=== PATIENT | male | born 2000 | race Caucasian/White ===

== ENCOUNTER 2021-08-12 09:25 | Emergency (ER) | payer OTHER, SELFPAY ==
--- NOTE | 2021-08-12 09:15 | RT.EKG_ITS ---
APPROVED REPORT Exam: Resting ECG Reason for Exam: PALPITATIONS Patient Location: E HR:81 bpm ECG Measurements Heart Rate 81 AXIS WY 109 P 75 QRSd 100 QRS 78 QT 377 T 64 QTc 439 Conclusion Sinus rhythm...normal P axis, V-rate 60- 99
--- NOTE | 2021-08-12 09:35 | W.ED.GENAD ---
Discharge Plan Disposition Patient Disposition: HOME Condition: Stable Discharge Details Clinical Impression: Palpitations Primary Care Provider: Roxanne,Local ED Provider: Gregorio Chilel Home Meds and New Rx's Prescriptions: No Action No Known Home Meds RF: 0 Discharge Instructions Instructions: Heart Palpitations (ED) Additional Instructions: follow up with the oyster culturist in [place] if you feel more ill, have chest pain/pressure, or worsening shortness of breath return to the emergency department Medical Decision Making 20 yo male with no chronic medical problems and denies smoking, drinking or alcohol use comes in with chief complaint of intermittent sensation of his heart fluttering and lasts a few minutes though today seems to be more persistent. He is in this area for school and lives in [place] and is supposed to be seeing cardiology down there in a few weeks. He denies any pain in the chest and denies pressure. He has no diaphoresis, n/v. He states sometimes he feels short of breath with the symptoms. He denies fevers, cough, leg swelling. He states family members have a history of svt. He is hemodynamically stable with normal ecg on exam while having the symptoms. He has clear lungs, no murmurs, no jvd, no leg swelling or calf tenderness. On bedside u/s no pericardial effusion, normal ef of the left ventricle, normal sized rv, normal lung sliding bilaterally and no b lines or effusions. I suspect this could be anxiety but given his symptoms feel it is reasonable to have an outpatient quality assurance monitor chassis placed. He is wells low and perc negative so doubt PE. No chest pain or pressure, heart score 0 so do not feel troponin indicated. Will have RT place outpatient monitor, return precautions given Differential Diagnosis Differential Diagnosis: afib, aflutter, svt, anxious ECG Data Attestation: I personally reviewed and interpreted this ECG (s) as follows: Prior ECG tracings: not available for review Interpretation: sinus rhythm, rate of 80, no acute st t wave ischemic findings HPI General Mode of arrival: ambulatory. Date/Time Provider Initiated Documentation: 08/12/21 09:26. Limitations to Documentation: no limitations. Information obtained by: patient. History of Present Illness 20 year old M presents to the emergency department with the chief complaint of fluttering in chest, described as mild, Patient started experiencing this week(s) (3) and it has been intermittent. No relieving factors improve symptom(s), No exacerbating factors reported . Patient notes shortness of breath. Patient did receive the following treatments prior to arrival, none Related Data Home Medications Medication Instructions Recorded Confirmed Unknown [No Known Home Meds] 08/12/21 08/12/21 Allergies Allergy/AdvReac Type Severity Reaction Status Date / Time No Known Allergies Allergy Unverified 08/12/21 09:30 General Stated Complaint: Palpitatns DANN: 3 Review of Systems All systems reviewed & are unremarkable except as noted in HPI and below Constitutional Constitutional: Denies chills, Denies fever(s) and Denies weakness Cardiovascular Cardiovascular: Denies chest pain Respiratory Respiratory: Denies cough Gastrointestinal Gastrointestinal: Denies abdominal pain, Denies nausea and Denies vomiting Musculoskeletal Musculoskeletal: Denies joint swelling Neurologic Neurologic: Denies weakness [facility] Active Problem List (Updated 08/12/21 @ 09:55 by Gregorio Chilel MD) Palpitations (Acute) Social History Smoking/Tobacco Use Status: Never Smoking risk assessment performed?: Yes Alcohol Intake: current Alcohol Intake frequency: holidays/special occasions only Drug use: Never Substance use type: does not use Exam Const General: no acute distress Orientation: alert HENMT Head: normal to inspection Ears: external ears normal General nose exam: external nose normal Mouth: moist mucous membranes Eyes General: appearance normal, both eyes and all related structures Neck Neck: normal visual inspection Resp Effort & Inspection: normal respiratory effort and able to speak in complete sentences Cardio Rate: regular rate Skin General skin exam: no rashes or lesions noted Neuro General: patient alert and patient oriented x3 Extrem General: normal to inspection Psych Mental Status: mental status grossly normal Course Vital Signs Vital signs: Respiratory Effort 08/12/21 09:30 Pain Level 0 08/12/21 09:28
[2021-08-12 09:40] VITALS: BP 144/81; PULSE 83; RESP 18; TEMP 36.7; O2SAT 99
[2021-08-12 10:41] VITALS: BP 118/73; PULSE 64; RESP 18; TEMP 36.6; O2SAT 95
[2021-08-12 11:15] VITALS: BP 118/73; PULSE 64; RESP 18; TEMP 36.6; O2SAT 95
--- NOTE | 2021-09-12 08:32 | W.CARDEVENT ---
Date of service: 09/12/21 Time of Service: 08:32 Cardiac Event Recorder Referring Provider:: Anthony Luis Indications:: Palpitations Cardiac Event Note: His cardiac event monitor was ordered for palpitations. A total of 18 days 15 hours was available for interpretation Rhythm throughout was sinus. Average heart rate was 74, minimum was 42, maximum 178 There were very rare isolated premature ventricular contractions. 1 of these might have corresponded to symptoms The majority of symptoms corresponded to sinus rhythm heart rates ranging from 70-90, rarely to sinus tachycardia 100 to 110 bpm There was no atrial fibrillation, no high-grade AV block, no pauses greater than 3 seconds
== END 2021-08-12 13:02 | disposition home or self-care (01) ==
PROVIDERS: Emergency Provider Emergency Medicine; PCP Pediatrics
DX: R00.2 Palpitations (principal); R06.02 Shortness of breath
CPT/HCPCS: 93005; 93270; 99283; 93010

== ENCOUNTER 2022-01-02 18:48 | Emergency (ER) | payer OTHER, SELFPAY ==
--- NOTE | 2022-01-02 19:00 | DI.RAD_ITS ---
Exam(s) XR WRIST RT COMPL NAVICULAR EXAM: XR WRIST RT COMPL NAVICULAR CLINICAL HISTORY: fall. TECHNIQUE: 2D digital imaging was performed of the right wrist. Four views were obtained. Scaphoid, PA, lateral and oblique views were obtained. COMPARISON: No exams were available for comparison FINDINGS: BONES: No acute fracture is present. No bony destructive lesion is seen. JOINTS: The carpal bones are normally aligned. SOFT TISSUE: Normal. IMPRESSION: Unremarkable radiographs of the right wrist. DATA REPOSITORY: RADIATION DOSE DELIVERED:
--- NOTE | 2022-01-02 19:00 | DI.RAD_ITS ---
Exam(s) XR FOREARM RT EXAM: XR FOREARM RT CLINICAL HISTORY: fall with distal radius pain. TECHNIQUE: 2D digital imaging was performed of the left forearm. Two views were obtained. AP and l ateral views were obtained. COMPARISON: No exams were available for comparison FINDINGS: BONES: No acute fracture is present. No bony destructive lesion is seen. Visualized portion of elbow and wrist joints are unremarkable. SOFT TISSUE: Normal. IMPRESSION: Unremarkable radiographs of the left forearm. DATA REPOSITORY: RADIATION DOSE DELIVERED:
[2022-01-02 19:02] VITALS: BP 131/68; PULSE 91; RESP 16; TEMP 37.2; O2SAT 99
--- NOTE | 2022-01-02 20:02 | DI.VRAD_ITS ---
PROCEDURE INFORMATION: Exam: XR Right Forearm Exam date and time: 01/02/2022 7:39 PM Age: 21 years old Clinical indication: Injury or trauma; Blunt trauma (contusions or hematomas); Arm, lower; Right; Injury date: 01/02/22; Injury details: Fall, distal radial pain TECHNIQUE: Imaging protocol: XR Right forearm. Views: 2 views. COMPARISON: CR XR WRIST RT COMPL NAVICULAR 01/02/2022 7:37 PM FINDINGS: Bones/joints: No acute fracture or malalignment. No significant degenerative change. No agressive bone destruction. Soft tissues: Unremarkable. IMPRESSION: 1. No acute findings. 2. If clinical concern for occult fracture, consider followup radiographs in 7-10 days. Dictated and Authenticated by: Mervat Schroeder MD. Ordering:MART Dai MD
--- NOTE | 2022-01-02 20:05 | DI.VRAD_ITS ---
PROCEDURE INFORMATION: Exam: XR Right Wrist Exam date and time: 01/02/2022 7:37 PM Age: 21 years old Clinical indication: Injury or trauma; Blunt trauma (contusions or hematomas); Wrist; Right; Injury date: 01/02/22; Injury details: Fall with distal radius pain TECHNIQUE: Imaging protocol: XR Right wrist. Views: 3 or more views. COMPARISON: No relevant prior studies available. FINDINGS: Bones/joints: Four views including a navicular view. No acute fracture or malalignment. No significant degenerative change. No agressive bone destruction. Soft tissues: Unremarkable. IMPRESSION: 1. No acute findings. 2. If a scaphoid fracture is suspected, consider ulnar deviation view and recommend imaging in 7-10 days after splinting to exclude occult fracture. Dictated and Authenticated by: Mervat Schroeder MD. Ordering:MART Dai MD
--- NOTE | 2022-01-02 20:07 | ED.GENADUL_ITS ---
Discharge Plan Disposition Patient Disposition: HOME Condition: Stable Discharge Details Clinical Impression: Right wrist sprain Primary Care Provider: Anthony Luis ED Provider: Suhas Dudley Home Meds and New Rx's Prescriptions: No Action No Known Home Meds 0RF Discharge Instructions Instructions: R.I.C.E. Treatment (ED), Wrist Sprain (ED) Additional Instructions: He may continue to use [id number] pain medication as needed. It is recommended that you use the wrist brace for the next 1 to 2 weeks at least while awake. After this time you may slowly increase use of your wrist. If you notice any new or significant worsening of symptoms feel free to return to the emergency department otherwise you have been placed on a follow-up list with orthopedics and you should give their office a call within the next couple days for arrangement of follow-up appointment. Referrals: [facility] [Provider Group] Discharge Data Discharge Date/Time-TO BE ENTERED AT DEPARTURE: 01/02/22 20:25 Medical Decision Making Patient presenting to the emergency department for chief complaint of right wrist injury. 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 Patient denies any other injury or trauma. Patient has mild abrasion to right fifth digit but otherwise normal examination of the digits patient has mild anatomical snuffbox tenderness along with tenderness and pain to the wrist with axial loading of the thumb and pain to palpation of the distal radius. Patient does have decreased rotation of the wrist. we will perform radiological imaging. Patient states just prior to arrival he took ibuprofen and he does not need any further pain medication. Review of radiological imaging shows no acute fracture or dislocation. Patient placed in a thumb spica and patient placed on Ortho follow-up list given worrisome mechanism of injury along with decreased range of motion. After discussion of diagnosis and plan of care patient has no further needs, questions, or concerns and states clear understanding to return to the emergency department for any worsening symptoms. Imaging Data Radiologic Study: Imaging: X-Ray Radiologist's impression: XR wrist IMPRESSION: 1. No acute findings. 2. If a scaphoid fracture is suspected, consider ulnar deviation view and recommend imaging in 7-10 days after splinting to exclude occult fracture. XR forearm IMPRESSION: 1. No acute findings. 2. If clinical concern for occult fracture, consider followup radiographs in 7- 10 days HPI General Mode of arrival: ambulatory . Date/Time Provider Initiated Documentation: 01/02/22 18:50 . Limitations to Documentation: no limitations . Information obtained by: patient and RN notes reviewed . History of Present Illness 21 year old M presents to the emergency department with the chief complaint of Right wrist injury, described as moderate, with intensity rated at 7. Quality is described as aching and sharp, and is localized to the right and upper extremity. Patient reports no radiation. Patient started experiencing this hour(s) (1) improves with Immobilization improves symptom(s), Movement worsens symptoms . Patient notes no other symptoms.. Patient did receive the following treatments prior to arrival, NSAID Related Data Home Medications Medication Instructions Recorded Confirmed Unknown [No Known Home Meds] 08/12/21 01/02/22 Allergies Allergy/AdvReac Type Severity Reaction Status Date / Time No Known Allergies Allergy Unverified 01/02/22 19:04 General Stated Complaint: Orthopedic DANN: 4 Review of Systems ENT Ears, Nose, Mouth, and Throat: Denies neck pain Cardiovascular Cardiovascular: Denies chest pain, Denies syncope and Denies dyspnea Respiratory Respiratory: Denies dyspnea Gastrointestinal Gastrointestinal: Denies abdominal pain Musculoskeletal Musculoskeletal: Reports as per HPI, Denies neck pain, Denies numbness and Denies tingling Integumentary/Breasts Skin/Breast: Denies rash, Denies sores and Denies wounds Neurologic Neurologic: Denies syncope, Denies numbness and Denies tingling PFSH All Active Problems Palpitations (Acute) Right wrist sprain (Acute) Social History Smoking/Tobacco Use Status: Never Smoking risk assessment performed?: Yes Alcohol Intake: current Alcohol Intake frequency: holidays/special occasions only Drug use: Never Substance use type: does not use Do you feel safe at home: Yes Do you feel safe in your relationship?: Yes Exam Const General: cooperative, no acute distress and not ill appearing Orientation: alert, awake and oriented x3 Resp Effort & Inspection: normal respiratory effort, able to speak in complete sentences and no respiratory distress Cardio Rate: regular rate Rhythm: regular rhythm Pulses: radial pulses present Skin General skin exam: no rashes or lesions noted Neuro General: patient alert, patient awake, patient oriented x3, moves all extremities and no focal motor deficits Sensory Exam: no sensory deficits noted Extrem General: normal exam except as noted Right upper extremity: elbow/forearm Details: normal to inspection and normal ROM; Negative for no tenderness and no swelling, wrist Details: tenderness Location: of the distal radius and of the anatomic snuffbox, abnormal ROM Details: pain with active ROM during and pain with passive ROM during and radial pulse present; Negative for no abrasions, no lacerations and no ecchymosis and hand Details: normal capillary refill, neuromotor exam normal, neurosensory exam normal, tendon exam normal, normal ROM of fingers and abrasion Location: of the 5th digit Location: at the PIP joint; Negative for no ecchymosis and no puncture wound Course Vital Signs Vital signs: Vital Signs Temperature 37.2 C 01/02/22 19:02 Pulse 91 H 01/02/22 19:02 Respiratory Rate 16 01/02/22 19:02 Blood Pressure 131/68 01/02/22 19:02 Pulse Oximetry 99 01/02/22 19:02 Temperature 37.2 C 01/02/22 19:02 Temperature Source Skin 01/02/22 19:02 Pulse 91 H 01/02/22 19:02 Respiratory Rate 16 01/02/22 19:02 Respiratory Effort Non-Labored 01/02/22 19:04 Blood Pressure 131/68 01/02/22 19:02 Pulse Oximetry 99 01/02/22 19:02 Pain Level 7 01/02/22 19:02 PAWSS Have you Been Recently Intoxicated or Drunk Within the Last 30 days?: No Have you Ever Experienced Previous Episodes of Alcohol Withdrawal?: No Have you ever Experienced Withdrawal Seizures?: No Have you ever Experienced Delirium Tremens(DT)s?: No Have you ever undergone Alcohol Rehabilitation Treatment (i.e, inpt ot outpatient treatment programs)?: No Have you ever Experienced Blackouts?: No Have you ever Combined Alcohol with other Downers within the last 90 days?: No Have you ever Combined Alcohol with any other Substance of Abuse during the last 90 days?: No Positive Blood Alcohol level on Presentation? [PCS.BAL]: No Evidence of Increased Autonomic Activity (i.e. HR>120, tremor, sweating, agitation, nausea)?: No Result: 0
== END 2022-01-02 20:25 | disposition home or self-care (01) ==
PROVIDERS: Emergency Provider Nurse Practitioner Family; PCP Pediatrics; Visit Provider Student in an Organized Health Care Education/Training Program
DX: S63.591A Other specified sprain of right wrist, initial encounter (principal); W17.89XA Other fall from one level to another, initial encounter
CPT/HCPCS: 29125; 99283; 73090; 73110